=== PATIENT | male | born 1985 | race African-American/Black ===

== ENCOUNTER 2017-10-20 13:40 | Emergency (ER) | payer MEDICAID ==
[~2017-10-20] VITALS: Ht 177.8 cm; Wt 113.6 kg
[~2017-10-20 13:40] MED LIST: AMLO5 PO
[2017-10-20 13:41] VITALS: BP 178/118; PULSE 95; RESP 20; TEMP 98.1; O2SAT 97
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
[2017-10-21] MEDS ORDERED: AMLO10TA2 PO (14:23)
== END 2017-10-20 17:07 | disposition left against medical advice (07) ==
LOC: NED 13:40
DX: R51 Headache (principal); I10 Essential (primary) hypertension; Z53.21 Procedure and treatment not carried out due to patient leaving prior to being seen by health care provider
CPT/HCPCS: 99281

== ENCOUNTER 2017-11-04 19:43 | Emergency (ER) | payer MEDICAID ==
[~2017-11-04 19:43] MED LIST changes: +AMLO10TA2 PO; -AMLO5 PO
[2017-11-04 19:45] VITALS: BP 155/91; PULSE 104; RESP 20; TEMP 98.1; O2SAT 98
[2017-11-04] MEDS ORDERED: ACETAMINOPHEN/HYDROcodone 325 MG/5 MG TAB PO ONE (21:00)
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
--- NOTE | 2017-11-04 22:26 | PD ---
Physical Exam Date Seen by Provider: Nov 04, 2017 Narrative I was asked to repair a laceration/avulsion to the left hand. I applied topical lidocaine to the left palm and debrided thoroughly. Irrigated and cleansed with chlorhexidine and normal saline. Removed the calloused tissue from the palm. The Xeroform dressing was placed over the palm and layered with bulky gauze. I advised the girlfriend on wound care. Data Data Last Documented VS Vital Signs Date Time Temp Pulse Resp B/P (MAP) Pulse Ox O2 Delivery O2 Flow Rate FiO2 11/04/17 20:28 101 100 Room Air 11/04/17 19:45 98.1 20 155/91 (112) Orders Orders Ct Brain W/O Iv Contrast(Rout) (11/04/17 ) Ct Cerv Spine W/O Contrast (11/04/17 ) Shoulder, Complete (>2vws) (11/04/17 ) Pelvis, Ap Only (Routine) (11/04/17 ) Spine, Lumbar Comp W/Obliq (11/04/17 ) Hand, Complete ([id number]) (11/04/17 ) Hand, Complete ([id number]) (11/04/17 ) Acetamin-Hydrocod 325-5 Mg ([place] 5-325 (11/04/17 21:00) MDM Supervised Visit with JERONIMO: Yes Additional Instruction: Follow up with your primary care physician within 2-3 days. If your symptoms persist or worsen, return to the emergency department. Keep area clean and dry for 24 hours. You may bathe as normal afterwards but ensure you dry the wound thoroughly. You may keep the yellow gauze on until it falls off on its own. Change gauze dressings daily. If he developed increased redness, swelling, or pain return to the emergency department. Varsha Hurd Nov 04, 2017 22:26
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
== END 2017-11-05 00:57 | disposition home or self-care (01) ==
LOC: NEPC 19:43
DX: S60.512A Abrasion of left hand, initial encounter (principal); R42 Dizziness and giddiness; M41.9 Scoliosis, unspecified; M47.9 Spondylosis, unspecified; I10 Essential (primary) hypertension; F17.200 Nicotine dependence, unspecified, uncomplicated; V86.95XA Unspecified occupant of 3- or 4- wheeled all-terrain vehicle (ATV) injured in nontraffic accident, initial encounter; Z79.899 Other long term (current) drug therapy
CPT/HCPCS: 70450; 72110; 72125; 72170; 73030; 73130

== ENCOUNTER 2017-11-28 09:50 | Emergency (ER) | payer MEDICAID, OTHER ==
[~2017-11-28] VITALS: Ht 177.8 cm; Wt 113.5 kg
[2017-11-28 09:55] VITALS: BP 200/118; PULSE 88; RESP 20; TEMP 98.4; O2SAT 99
[2017-11-28 09:59] VITALS: BP 180/84
[2017-11-28] MEDS ORDERED: MORPHINE SULFATE 2 MG/ML INJ IV PUSH ONE (10:45)
[2017-11-28] MEDS ORDERED: ASPIRIN 81 MG CHEW TAB PO ONE (10:45)
[2017-11-28] MEDS ORDERED: SODIUM CHLORIDE 0.9% FLUSH 10 ML FLUSH IVF PRN (10:45)
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
--- NOTE | 2017-11-28 11:26 | EKG ---
Date Performed: 11/28/2017 Time Performed: 10:46:35 PTAGE: 32 years EKG: Sinus rhythm POSSIBLE LEFT ATRIAL ENLARGEMENT BORDERLINE ECG NO PREVIOUS TRACING DOCTOR: Shorty Lund Interpretating Date/Time 11/28/2017 11:25:03
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
[2017-11-28 11:41] LABS: BASOPHIL # 0.1 TH/MM3 (0-0.2); EOSINOPHIL # 0.2 TH/MM3 (0-0.4); HEMATOCRIT 35.5 % (39.0-51.0); LYMPH % 20.4 % (9.0-44.0); LYMPHOCYTE # 1.2 TH/MM3 (1.0-4.8); MEAN CELL VOLUME 85.9 FL (80.0-100.0); MEAN CORPUSCULAR HEMOGLOBIN 29.1 PG (27.0-34.0); MEAN CORPUSCULAR HGB CONC 33.8 % (32.0-36.0); MEAN PLATELET VOLUME 6.6 FL (7.0-11.0); MONO % 8.1 % (0.0-8.0); MONOCYTE # 0.5 TH/MM3 (0-0.9); NEUT % 67.5 % (16.0-70.0); PLATELET COUNT 314 TH/MM3 (150-450); RED BLOOD COUNT 4.14 MIL/MM3 (4.50-5.90); RED CELL DISTRIBUTION WIDTH 14.2 % (11.6-17.2); WHITE BLOOD COUNT 5.9 TH/MM3 (4.0-11.0)
[2017-11-28 12:02] LABS: BICARBONATE 24.7 MEQ/L (21.0-32.0); BLOOD UREA NITROGEN 10 MG/DL (7-18); CALCIUM 9.1 MG/DL (8.5-10.1); CHLORIDE 108 MEQ/L (98-107); CREATININE 0.79 MG/DL (0.60-1.30); GLOMERULAR FILTRATION RATE 136 ML/MIN (>89); GLUCOSE,RANDOM 97 MG/DL (74-106); MAGNESIUM 2.2 MG/DL (1.5-2.5); SODIUM (NA) 140 MEQ/L (136-145)
[2017-11-28 12:06] LABS: TROPONIN I LESS THAN 0.02 NG/ML (0.02-0.05)
== END 2017-11-28 13:27 | disposition home or self-care (01) ==
LOC: NEPD 09:50
DX: R07.9 Chest pain, unspecified (principal); S60.512A Abrasion of left hand, initial encounter; V86.95XA Unspecified occupant of 3- or 4- wheeled all-terrain vehicle (ATV) injured in nontraffic accident, initial encounter; R94.31 Abnormal electrocardiogram [ECG] [EKG]; I10 Essential (primary) hypertension; F17.200 Nicotine dependence, unspecified, uncomplicated
CPT/HCPCS: 71046; 80048; 83735; 84484; 85025; 85610; 85730; 93005; 96374; 99285; J2270